=== PATIENT | female | born 1950 ===

== ENCOUNTER 2017-08-07 17:20 | Emergency (ER) | payer MEDICARE, BC ==
[2017-08-07 18:38] VITALS: RESP 18
--- NOTE | 2017-08-07 20:49 | ED PDOC ---
HPI:Nausea, Vomiting, Diarrhea Chief Complaint (Provider): vomiting History Per: Patient History/Exam Limitations: no limitations Onset/Duration Of Symptoms: Hrs Current Symptoms Are (Timing): Still Present Have you had recent travel within the past 21 days to any of the following countries: [place], [place], [place] or [place]?: No Severity: Severe Pain Scale Rating Of: 9 Quality Of Discomfort: "Pain" Associated Symptoms: Nausea, Vomiting. denies: Fever, Chills, Diarrhea, Loss Of Appetite, Urinary Symptoms Exacerbating Factors: Food (or water) Alleviating Factors: None Last Bowel Movement: Today (normal) Additional Complaint(s): 66 yr old F presents to clinic with complaint of 8 episodes of nonbilious/ nonbloody vomiting since 11am this morning. PMHx includes left breast cancer and hypertension. Associated symptoms are nausea, dull abdominal pain located in periumbilical area-10. Patient drank coffee with milk this AM followed by a green vegetable/fruit smoothie, emesis started 1 hr after. Denies chest pain, SOB, weakness, dysuria, hematuria, fevers or chills, headaches or weight loss. Reports having a similar episodes of recurrent emesis in the past after radiation tx. PMD: Dr. Adams Specialists: -oncologist, Dr. Jiménez-cardiology SurgHx: left breast lumpectomy x 2, abdominal hernia repair, right knee arthroscopy, uterine fibroidectomy Medications: Metoprolol ER 25mg PO QD, Amlodipine 10mg PO QD , Simvastatin 40mg PO QD, Letrozole 2.5mg PO QD Allergies: aspirin <Robina Cifuentes - Last Filed: 08/10/17 11:14> <Cyndi Tran - Last Filed: 08/10/17 16:30> Time Seen by Provider: 08/07/17 19:07 Chief Complaint (Nursing): Abdominal Pain Supervising Attending Note - Supervising Attending Note The Documented history was done by the: Physician Director Of Catering Sales The documented physical exam was done by the: Physician Director Of Catering Sales, Attending Physician - Attestation: I have personally seen and examined this patient.: Yes I have fully participated in the care of the patient.: Yes I have reviewed all pertinent clinical information, including history, physical exam and plan: Yes <Cyndi Tran - Last Filed: 08/10/17 16:30> Past Medical History Vital Signs: Last Vital Signs Temp 97.8 F 08/07/17 18:35 Pulse 79 08/07/17 18:35 Resp 18 08/07/17 18:35 BP 146/87 08/07/17 18:35 Pulse Ox 99 08/07/17 18:35 - Medical History PMH: HTN, Malignancy (left breast) - Surgical History Surgical History: Hernia Repair (abdominal) Other surgeries: left breast lumpectomy x 2 - Family History Family History: States: No Known Family Hx - Living Arrangements Living Arrangements: With Family - Social History Current smoker - smoking cessation education provided: No Ex-Smoker (has not smoked in the last 12 months): No Alcohol: None Drugs: Denies <Roibna Cifuentes - Last Filed: 08/10/17 11:14> Vital Signs: Last Vital Signs Temp 98 F 08/07/17 22:55 Pulse 81 08/07/17 22:55 Resp 18 08/07/17 22:55 BP 130/78 08/07/17 22:55 Pulse Ox 99 08/10/17 11:15 <Cyndi Tran - Last Filed: 08/10/17 16:30> - Home Medications Home Medications: Ambulatory Orders Medication Instructions Recorded Ondansetron ODT [Zofran ODT] 1 odt PO Q6 PRN #20 odt 08/07/17 - Allergies Allergies/Adverse Reactions: Allergies Allergy/AdvReac Type Severity Reaction Status Date / Time aspirin Allergy RASH Verified 08/07/17 18:35 papaya Allergy RASH Verified 08/07/17 18:35 Review of Systems Constitutional: Negative for: Fever, Chills Eyes: Negative for: Vision Change ENT: Negative for: Nose Discharge, Throat Pain Cardiovascular: Negative for: Chest Pain, Palpitations, Edema, Light Headedness Respiratory: Negative for: Cough, Shortness of Breath, Hemoptysis Gastrointestinal: Positive for: Nausea, Vomiting, Abdominal Pain. Negative for : Diarrhea, Constipation Genitourinary Female: Negative for: Dysuria, Hematuria, Vaginal Discharge, Vaginal Bleeding Musculoskeletal: Negative for: Neck Pain, Shoulder Pain, Arm Pain Skin: Negative for: Rash, Lesions Neurological: Negative for: Weakness, Confusion, Dizziness <Robina Cifuentes - Last Filed: 08/10/17 11:14> Physical Exam - Physical Exam Appears: Positive for: No Acute Distress Head Exam: Positive for: ATRAUMATIC, NORMOCEPHALIC Skin: Positive for: Normal Color, Warm, Dry Eye Exam: Positive for: EOMI, PERRL ENT: Positive for: Other (mucous membranes moist). Negative for: Pharyngeal Erythema, Tonsillar Exudate Neck: Positive for: Painless ROM, Supple Cardiovascular/Chest: Positive for: Regular Rate, Rhythm, Murmur. Negative for : Gallop Respiratory: Positive for: Normal Breath Sounds. Negative for: Rales, Rhonchi Pulses-Carotid (L): 2+ Pulses-Carotid (R): 2+ Pulses-Radial (L): 2+ Pulses-Radial (R): 2+ Gastrointestinal/Abdominal: Positive for: Bowel Sounds (present), Soft, Tenderness (mild to deep palpation in periumbilical area) Back: Negative for: L CVA Tenderness, R CVA Tenderness Extremity: Positive for: Normal ROM. Negative for: Tenderness, Pedal Edema, Swelling Neurologic/Psych: Positive for: Alert, immersion metal cleaner II-XII, Oriented, Mood/Affect (normal /full range). Negative for: Motor/Sensory Deficits <Robina Cifuentes - Last Filed: 08/10/17 11:14> - Laboratory Results Result Diagrams: 08/07/17 20:55 08/07/17 20:55 - ECG O2 Sat by Pulse Oximetry: 99 - Progress ED Course And Treament: -CBC with diff, CMP, lipase, Udip, -Zofran 4mg PO -NS 1L IV <Robina Cifuentes - Last Filed: 08/10/17 11:14> - Laboratory Results Result Diagrams: 08/07/17 20:55 08/07/17 20:55 <Cyndi Tran - Last Filed: 08/10/17 16:30> Disposition - Patient ED Disposition Is Patient to be Admitted: No - Disposition Disposition Time: 22:55 <Robina Cifuentes - Last Filed: 08/10/17 11:14> <Cyndi Tran - Last Filed: 08/10/17 16:30> - Clinical Impression Clinical Impression: Nausea & vomiting - Disposition Condition: IMPROVED Additional Instructions: VISITA ASHLEY DOCTOR EN 2-3 RICHARDSON A CHEQAR DE NUEVO Prescriptions: Ondansetron ODT [Zofran ODT] 1 odt PO Q6 PRN #20 odt PRN Reason: Nausea/Vomiting Instructions: Nausea and Vomiting, Adult (DC) Forms: [facility] (Thai) Print Language: KOSOVAN
[2017-08-07 21:04] LABS: BASO % 0.5 % (0.0-2.0); HEMOGLOBIN 13.1 g/dL (12.0-16.0); LYMPH # 1.9 K/uL (1.0-4.3); LYMPH % 21.6 % (20.0-40.0); MEAN CELL VOLUME 83.7 fl (81.0-99.0); MEAN CORPUSCULAR HEMOGLOBIN 27.3 pg (27.0-31.0); MEAN CORPUSCULAR HGB CONC 32.6 g/dL (33.0-37.0); MEAN PLATELET VOLUME 8.9 fl (7.2-11.7); MONO # 0.2 K/uL (0.0-0.8); MONO % 2.9 % (0.0-10.0); NEUT # 6.6 K/uL (1.8-7.0); RBC 4.81 Mil/uL (3.80-5.20); RED CELL DISTRIBUTION WIDTH 14.4 % (11.5-14.5); WHITE BLOOD COUNT 8.7 K/uL (4.8-10.8)
[2017-08-07] MEDS: Sodium Chloride 0.9% 1,000 ML IV SCH ×3 (21:07→22:16)
[2017-08-07 21:28] LABS: ALBUMIN 4.5 g/dL (3.5-5.0); ALT/SGPT 39 U/L (9-52); AST/SGOT 37 U/L (14-36); BLOOD UREA NITROGEN 12 mg/dl (7-17); CALCIUM 10.1 mg/dL (8.4-10.2); GFR AFRICAN-AMERICAN > 60; GFR NON-AFRICAN AMERICAN > 60; LIPASE 39 U/L (23-300)
[2017-08-07 22:14] VITALS: PULSE 81; TEMP 98
[2017-08-07 22:56] VITALS: BP 130/78
[2017-08-10 11:15] VITALS: O2SAT 99
== END 2017-08-07 22:56 | disposition home or self-care (01) ==
LOC: H.ER 17:20
DX: R11.2 Nausea with vomiting, unspecified (principal)
CPT/HCPCS: 80053; 82948; 83690; 85025; 99284; J7040